=== PATIENT | female | born 1940 | race African-American/Black ===

== ENCOUNTER → 2018-10-30 | Outpatient (CLI) | payer MEDICARE, OTHER ==
[~2018-10-30] MED LIST: IOVERSOL 320 MG/ML 100 ML VIAL ONE; SODIUM CHLORIDE 0.9% 100 ML ONE
== END | disposition home or self-care (01) ==
LOC: RADMN 09:37
PROVIDERS: ATTEND Legal Medicine
DX: Z53.9 Procedure and treatment not carried out, unspecified reason (principal)
CPT/HCPCS: 70491; J7050; Q9967

== ENCOUNTER → 2022-10-10 | Outpatient (CLI) | payer MEDICARE, OTHER ==
[~2022-10-10] VITALS: Ht 154.9 cm; Wt 59.6 kg
[~2022-10-10] MED LIST changes: +CARB1DRO9 OU; +FLUT16SP NASAL; +FLUT1BLS3 PO; +IBUP-2853 PO; +INSLAN SQ; -IOVERSOL 320 MG/ML 100 ML VIAL ONE; +PROP1DRO4 OU; +SERT-158 PO; +SIMV-261 PO; -SODIUM CHLORIDE 0.9% 100 ML ONE; +UREA85CR TP; +XALA2.5OS OU
[2022-10-10 12:08] VITALS: BP 144/70
== END | disposition home or self-care (01) ==
LOC: SRCNTR 11:31
PROVIDERS: ATTEND Internal Medicine
DX: R22.1 Localized swelling, mass and lump, neck (principal); R06.00 Dyspnea, unspecified; D86.9 Sarcoidosis, unspecified; Z93.3 Colostomy status
CPT/HCPCS: G0463

== ENCOUNTER → 2023-11-07 | Outpatient (CLI) | payer MEDICARE ==
[~2023-11-07] MED LIST changes: +CARB1DRO24 OU; -CARB1DRO9 OU
== END | disposition home or self-care (01) ==
LOC: RADMN 08:27
PROVIDERS: ATTEND Legal Medicine
DX: F01.50 Vascular dementia, unspecified severity, without behavioral disturbance, psychotic disturbance, mood disturbance, and anxiety (principal); J32.8 Other chronic sinusitis
CPT/HCPCS: 70551

== ENCOUNTER 2024-10-28 19:45 | Inpatient (IN) | payer MEDICARE, OTHER, MEDICAID ==
[~2024-10-28] VITALS: Ht 154.9 cm; Wt 45.8 kg
[~2024-10-28 19:45] MED LIST changes: -CARB1DRO24 OU; +CARB50DR OU
[2024-10-28] MEDS ORDERED: 0.9% SODIUM CHLORIDE 10 ML SYRINGE IVP PRN (23:15)
[2024-10-28 23:29] LABS: BASOPHILS % (AUTO) 0.6 % (0.0-2.0); EOSINOPHILS % (AUTO) 0.1 % (1.0-6.0); HEMATOCRIT 38.4 % (36-46); HEMOGLOBIN 12.6 g/dL (12.0-16.0); LYMPHOCYTES # (AUTO) 1.4 K/uL (1.0-4.8); LYMPHOCYTES % (AUTO) 16.9 % (22.0-44.0); MEAN CORPUSCULAR HGB CONC 32.9 G/dL (31.0-37.0); MEAN CORPUSCULAR VOLUME 88 fL (80-100); MONOCYTES # (AUTO) 0.3 K/uL (0.1-1.0); MONOCYTES % (AUTO) 4.2 % (2.0-9.0); NEUTROPHILS # (AUTO) 6.3 K/uL (1.8-7.7); NEUTROPHILS % (AUTO) 78.2 % (40.0-70.0); PLATELET COUNT (AUTO) 162 K/uL (150-450); RED BLOOD CELL COUNT(AUTO) 4.36 MIL/uL (4.00-5.20); RED CELL DISTRIBUTION WIDTH 15.1 % (11.5-14.5)
[2024-10-28 23:38] LABS: ANION GAP 13 mmol/L (8-16); CALCIUM, TOTAL 9.6 mg/dL (8.8-10.5); CARBON DIOXIDE 15 mmol/L (22-29); CHLORIDE 109 mmol/L (98-107); CREATININE 2.06 mg/dL (0.60-1.30); GLOMERULAR FILTR. RATE CALC 28 mL/min (>60); GLUCOSE,RANDOM 128 mg/dL (70-110); POTASSIUM 5.9 mmol/L (3.5-5.1); PROTHROMBIN TIME 10.9 SEC (9.4-11.6); SODIUM SERUM 137 mmol/L (136-145); UREA NITROGEN, BLOOD 65 mg/dL (7-18)
[2024-10-28 23:44] LABS: B-TYPE NATRIURETIC PEPTIDE 25 pg/mL (0-100)
[2024-10-28 23:47] LABS: LACTIC ACID 1.6 mmol/L (0.4-2.0)
[2024-10-28 23:49] LABS: TROPONIN I-HIGH SENSITIVITY 59 ng/L (<51)
[2024-10-29] MEDS ORDERED: DEXTROSE 50%-WATER 25 GM/50 ML SYRINGE IVP PRN (01:00)
[2024-10-29] MEDS ORDERED: BISACODYL 10 MG RECTAL RECTAL SUPPOSITORY PR PRN (01:00)
[2024-10-29] MEDS ORDERED: ACETAMINOPHEN 325 MG TABLET PO PRN (01:00)
[2024-10-29] MEDS ORDERED: ONDANSETRON HCL 4 MG/2 ML VIAL IVP PRN (01:00)
[2024-10-29] MEDS: SODIUM ZIRCONIUM CYCLOSILICATE 5 GM POWDER PACKET PO ONE (01:13)
[2024-10-29] MEDS: SODIUM CHLORIDE 0.9% 900 ML IV ONE (01:13)
[2024-10-29] MEDS: CefTRIAXone 1 GM/DEXTROSE 50 ML IV ONE (01:14)
[2024-10-29] MEDS: SODIUM CHLORIDE 0.9% 1,000 ML IV ONE (01:15)
[2024-10-29 04:13] VITALS: BP 128/52; PULSE 75; RESP 16; TEMP 97.7; O2SAT 98
[2024-10-29 06:11] LABS: GLUCOMETER DEV NAME(LOC) 5N.2C; GLUCOSE,POINT OF CARE 107 MG/DL (70-110)
[2024-10-29] MEDS: DOCUSATE SODIUM 100 MG CAPSULE PO SCH (08:07)
[2024-10-29] MEDS: FAMOTIDINE 20 MG TABLET PO SCH (08:07)
[2024-10-29] MEDS: HEPARIN SODIUM,PORCINE 5,000 UNITS/ML VIAL SQ SCH (08:09)
[2024-10-29 09:01] VITALS: BP 122/55; PULSE 77; RESP 15; TEMP 98; O2SAT 97
[2024-10-29 09:55] LABS: CALCIUM, TOTAL 9.1 mg/dL (8.8-10.5); CREATININE 1.88 mg/dL (0.60-1.30); POTASSIUM 5.5 mmol/L (3.5-5.1)
[2024-10-29] MEDS: INSULIN LISPRO 100 UNITS/ML SQ PRN (12:07)
[2024-10-29 12:21] LABS: GLUCOMETER DEV NAME(LOC) 5N.1D; GLUCOSE,POINT OF CARE 183 MG/DL (70-110)
[2024-10-29 16:00] VITALS: BP 116/51; PULSE 68; RESP 16; TEMP 97.8; O2SAT 97
[2024-10-29] MEDS: [UNRECOGNIZED DRUG - REMARK] IV SCH (17:26)
[2024-10-29 19:47] VITALS: BP 130/54; PULSE 70; RESP 16; TEMP 97.9; O2SAT 100
[2024-10-30] VITALS (7 sets, daily range): BP systolic 112–140; BP diastolic 51–83; PULSE 67–86; RESP 16–19; TEMP 97.7–98.2; O2SAT 97–100
[2024-10-30 07:47] LABS: CALCIUM, TOTAL 8.3 mg/dL (8.8-10.5); CREATININE 1.39 mg/dL (0.60-1.30); MAGNESIUM 1.7 mg/dL (1.80-2.40); PHOSPHORUS 3.2 mg/dL (2.5-4.9); POTASSIUM 4.2 mmol/L (3.5-5.1)
[2024-10-30 09:51] LABS: GLUCOMETER DEV NAME(LOC) 5N.1D; GLUCOSE,POINT OF CARE 87 MG/DL (70-110)
[2024-10-30 09:51] LABS: GLUCOMETER DEV NAME(LOC) 5N.1D; GLUCOSE,POINT OF CARE 94 MG/DL (70-110)
[2024-10-30 09:51] LABS: GLUCOMETER DEV NAME(LOC) 5N.2C; GLUCOSE,POINT OF CARE 146 MG/DL (70-110)
[2024-10-30] MEDS: MAGNESIUM OXIDE 400 MG TABLET PO ONE (13:01)
[2024-10-30] MEDS: MAGNESIUM SULFATE 1 GM in DEXTROSE 5%-WATER 50 ML IV ONE (18:32)
[2024-10-30] MEDS: [UNRECOGNIZED DRUG - REMARK] IV SCH (20:08)
[2024-10-30 23:06] LABS: GLUCOMETER DEV NAME(LOC) 5N.2C; GLUCOSE,POINT OF CARE 156 MG/DL (70-110)
[2024-10-31 03:21] VITALS: BP 133/62; PULSE 91; RESP 18; TEMP 97.7; O2SAT 99
[2024-10-31 06:06] LABS: PARATHYROID HORMONE INTACT 27 pg/mL (15-65)
[2024-10-31 06:18] LABS: BASOPHILS % (AUTO) 0.4 % (0.0-2.0); EOSINOPHILS % (AUTO) 2.2 % (1.0-6.0); HEMATOCRIT 30.3 % (36-46); HEMOGLOBIN 10.3 g/dL (12.0-16.0); LYMPHOCYTES # (AUTO) 1.6 K/uL (1.0-4.8); LYMPHOCYTES % (AUTO) 29.6 % (22.0-44.0); MEAN CORPUSCULAR HEMOGLOBIN 29.1 pg (26.0-34.0); MEAN CORPUSCULAR HGB CONC 34.1 G/dL (31.0-37.0); MEAN CORPUSCULAR VOLUME 85 fL (80-100); MONOCYTES # (AUTO) 0.5 K/uL (0.1-1.0); MONOCYTES % (AUTO) 9.2 % (2.0-9.0); NEUTROPHILS # (AUTO) 3.1 K/uL (1.8-7.7); NEUTROPHILS % (AUTO) 58.6 % (40.0-70.0); PLATELET COUNT (AUTO) 131 K/uL (150-450); RED BLOOD CELL COUNT(AUTO) 3.55 MIL/uL (4.00-5.20); RED CELL DISTRIBUTION WIDTH 15.1 % (11.5-14.5); WHITE BLOOD COUNT (AUTO) 5.3 K/uL (4.5-11.0)
[2024-10-31 06:31] LABS: CALCIUM, TOTAL 8.4 mg/dL (8.8-10.5); CREATININE 1.16 mg/dL (0.60-1.30); POTASSIUM 4.5 mmol/L (3.5-5.1)
[2024-10-31 06:36] LABS: GLUCOMETER DEV NAME(LOC) 5N.2C; GLUCOSE,POINT OF CARE 114 MG/DL (70-110)
[2024-10-31 07:23] LABS: MAGNESIUM 2.5 mg/dL (1.80-2.40)
[2024-10-31 08:10] VITALS: BP 134/56; PULSE 92; RESP 20; TEMP 98.2; O2SAT 99
[2024-10-31 12:14] VITALS: BP 138/60; PULSE 70; RESP 19; TEMP 98.1; O2SAT 97
[2024-10-31 16:20] VITALS: BP 127/60; PULSE 74; RESP 18; TEMP 98.4; O2SAT 99
[2024-10-31 17:00] LABS: APPEARANCE,URINE CLEAR (CLEAR); BILIRUBIN,URINE NEGATIVE (NEGATIVE); COLOR,URINE LIGHT YELLOW (YELLOW); GLUCOSE, URINE (UA) NEGATIVE (NEGATIVE); KETONES,URINE NEGATIVE (NEGATIVE); LEUKOCYTE ESTERASE ,URINE NEGATIVE (NEGATIVE); NITRATE,URINE NEGATIVE (NEGATIVE); OCCULT BLOOD,URINE NEGATIVE (NEGATIVE); PROTEIN,URINE NEGATIVE (NEGATIVE); SPECIFIC GRAVITIY, URINE 1.009 (1.003-1.030); UROBILINOGEN,URINE <=1.0 mg/dL (<=1.0)
[2024-10-31 21:41] LABS: GLUCOMETER DEV NAME(LOC) 5N.2C; GLUCOSE,POINT OF CARE 167 MG/DL (70-110)
[2024-10-31 21:41] LABS: GLUCOMETER DEV NAME(LOC) 5N.2C; GLUCOSE,POINT OF CARE 153 MG/DL (70-110)
== END 2024-10-31 19:25 | disposition home or self-care (01) | DRG 682 ==
LOC: EMS 19:56 → EDH 10-29 01:13 → 5N 10-29 04:00
PROVIDERS: ADMIT Internal Medicine; ATTEND Internal Medicine
DX: N17.9 Acute kidney failure, unspecified (principal); G93.41 Metabolic encephalopathy; E87.20 Acidosis, unspecified; E46 Unspecified protein-calorie malnutrition; Z68.1 Body mass index [BMI] 19.9 or less, adult; C64.2 Malignant neoplasm of left kidney, except renal pelvis; F03.90 Unspecified dementia, unspecified severity, without behavioral disturbance, psychotic disturbance, mood disturbance, and anxiety; E87.5 Hyperkalemia; E11.22 Type 2 diabetes mellitus with diabetic chronic kidney disease; D64.9 Anemia, unspecified; N18.9 Chronic kidney disease, unspecified; J44.9 Chronic obstructive pulmonary disease, unspecified; E04.9 Nontoxic goiter, unspecified; I12.9 Hypertensive chronic kidney disease with stage 1 through stage 4 chronic kidney disease, or unspecified chronic kidney disease; Z93.3 Colostomy status; Q63.2 Ectopic kidney; Z81.8 Family history of other mental and behavioral disorders; Z82.49 Family history of ischemic heart disease and other diseases of the circulatory system; Z83.3 Family history of diabetes mellitus
CPT/HCPCS: 70450; 71045; 74176; 80048; 81003; 82607; 82962; 83605; 83735; 83880; 83970; 84100; 84145; 84484; 84630; 85025; 85610; 87040; 93005; 97116; 97163; 99285; J0696; J1644; J3475; J3490; J7030; J7060; 36415-L1; 36415-TC

== ENCOUNTER 2025-04-06 11:37 | Inpatient (IN) | payer MEDICARE, OTHER ==
[~2025-04-06] VITALS: Ht 154.9 cm; Wt 46.0 kg
[~2025-04-06 11:37] MED LIST changes: -CARB50DR OU; -FLUT16SP NASAL; +FLUT1BLS3 IH; -FLUT1BLS3 PO; -IBUP-2853 PO; -INSLAN SQ; -UREA85CR TP
[2025-04-06 12:38] LABS: PLATELET COUNT (AUTO) 164 K/uL (150-450); RED BLOOD CELL COUNT(AUTO) 3.99 MIL/uL (4.00-5.20); RED CELL DISTRIBUTION WIDTH 14.5 % (11.5-14.5); WHITE BLOOD COUNT (AUTO) 6.1 K/uL (4.5-11.0)
[2025-04-06 12:42] LABS: CALCIUM, TOTAL 9.1 mg/dL (8.8-10.5); CREATININE 1.46 mg/dL (0.60-1.30); GLOMERULAR FILTR. RATE CALC 41 mL/min (>60); GLUCOSE,RANDOM 138 mg/dL (70-110); SODIUM SERUM 138 mmol/L (136-145); UREA NITROGEN, BLOOD 30 mg/dL (7-18)
[2025-04-06 12:48] LABS: CREATINE KINASE, TOTAL ONLY 29 U/L (26-192)
[2025-04-06 12:50] LABS: TROPONIN I-HIGH SENSITIVITY 6 ng/L (<51)
[2025-04-06 13:17] LABS: APPEARANCE,URINE CLEAR (CLEAR); GLUCOSE, URINE (UA) NEGATIVE (NEGATIVE); LEUKOCYTE ESTERASE ,URINE NEGATIVE (NEGATIVE); NITRATE,URINE NEGATIVE (NEGATIVE); OCCULT BLOOD,URINE NEGATIVE (NEGATIVE); SPECIFIC GRAVITIY, URINE 1.010 (1.003-1.030)
[2025-04-06] MEDS: SODIUM CHLORIDE 0.9% 500 ML IV ONE (13:55)
[2025-04-06 16:58] VITALS: BP 150/96; PULSE 54; RESP 18; TEMP 98.1; O2SAT 92
[2025-04-06] MEDS ORDERED: HYDROCODONE/ACETAMINOPHEN 5-325 MG TABLET PO PRN (19:30)
[2025-04-06] MEDS ORDERED: BISACODYL 10 MG RECTAL RECTAL SUPPOSITORY PR PRN (19:30)
[2025-04-06] MEDS ORDERED: ZOLPIDEM TARTRATE 5 MG TABLET PO PRN (19:30)
[2025-04-06] MEDS ORDERED: DEXTROSE 50%-WATER 25 GM/50 ML SYRINGE IVP PRN (19:30)
[2025-04-06] MEDS ORDERED: MORPHINE SULFATE 4 MG/ML SYRINGE IVP PRN (19:30)
[2025-04-06] MEDS ORDERED: INSULIN LISPRO 100 UNITS/ML SQ PRN ×2 (19:30)
[2025-04-06] MEDS ORDERED: MAGNESIUM HYDROXIDE SUSPENSION 30 ML UDCUP PO PRN (19:30)
[2025-04-06] MEDS ORDERED: IPRATROPIUM BROMIDE 0.5 MG/2.5 ML NEB SOLUTION NEB PRN (19:30)
[2025-04-06] MEDS ORDERED: ONDANSETRON HCL 4 MG/2 ML VIAL IVP PRN (19:30)
[2025-04-06] MEDS ORDERED: GLUCAGON,HUMAN RECOMBINANT 1 MG VIAL IM PRN (19:30)
[2025-04-06] MEDS ORDERED: ACETAMINOPHEN 325 MG TABLET PO PRN (19:30)
[2025-04-06] MEDS ORDERED: ALBUTEROL SULFATE 2.5 MG/0.5 ML NEB SOLUTION NEB PRN (19:30)
[2025-04-06 19:33] VITALS: BP 168/52; PULSE 61; RESP 18; TEMP 97.9; O2SAT 97
[2025-04-06 19:34] VITALS: BP 174/66; RESP 18; O2SAT 95
[2025-04-06] MEDS: LABETALOL HCL 5 MG/ML 20 ML VIAL IVP PRN (20:00)
[2025-04-06] MEDS: CARBIDOPA/LEVODOPA 25-100 MG TABLET PO SCH (20:21)
[2025-04-06 22:10] VITALS: BP 140/55; PULSE 58; RESP 18; TEMP 98.1; O2SAT 98
[2025-04-06] MEDS: HEPARIN SODIUM,PORCINE 5,000 UNITS/ML VIAL SQ SCH (23:21)
[2025-04-07 05:05] VITALS: BP 145/54; PULSE 68; RESP 18; TEMP 98.1; O2SAT 99
[2025-04-07 06:26] LABS: GLUCOMETER DEV NAME(LOC) 6N.1C; GLUCOSE,POINT OF CARE 101 MG/DL (70-110)
[2025-04-07 08:51] VITALS: BP 149/59; PULSE 60; RESP 18; TEMP 97.5; O2SAT 98
[2025-04-07] MEDS: SODIUM CHLORIDE 0.9% 1,000 ML IV ONE (08:52)
[2025-04-07] MEDS: PANTOPRAZOLE SODIUM 40 MG DR TABLET PO SCH (08:52)
[2025-04-07 15:41] VITALS: BP 144/64; PULSE 60; RESP 18; TEMP 97.7; O2SAT 98
[2025-04-07 17:40] LABS: GLUCOMETER DEV NAME(LOC) 6N.2C; GLUCOSE,POINT OF CARE 131 MG/DL (70-110)
[2025-04-07 17:40] LABS: GLUCOMETER DEV NAME(LOC) 6N.2C; GLUCOSE,POINT OF CARE 106 MG/DL (70-110)
[2025-04-07 20:09] VITALS: BP 151/54; PULSE 60; RESP 20; TEMP 97.7; O2SAT 97
[2025-04-07 21:05] LABS: GLUCOMETER DEV NAME(LOC) 6N.1C; GLUCOSE,POINT OF CARE 119 MG/DL (70-110)
[2025-04-08 04:31] VITALS: BP 145/75; PULSE 55; RESP 18; TEMP 97.9; O2SAT 98
[2025-04-08 06:30] LABS: GLUCOMETER DEV NAME(LOC) 6N.2C; GLUCOSE,POINT OF CARE 117 MG/DL (70-110)
[2025-04-08 08:12] VITALS: BP 160/66; PULSE 59; RESP 18; TEMP 97.5; O2SAT 100
[2025-04-08 09:05] VITALS: BP 140/60; PULSE 59; RESP 18; TEMP 97; O2SAT 97
[2025-04-08 09:31] LABS: GLUCOMETER DEV NAME(LOC) 6N.2C; GLUCOSE,POINT OF CARE 92 MG/DL (70-110)
[2025-04-08 13:57] LABS: GLUCOSE,RANDOM 115 mg/dL (70-110); SODIUM SERUM 139 mmol/L (136-145)
[2025-04-08 13:58] LABS: CALCIUM, TOTAL 8.8 mg/dL (8.8-10.5); CREATININE 0.97 mg/dL (0.60-1.30); GLOMERULAR FILTR. RATE CALC > 60 mL/min (>60); UREA NITROGEN, BLOOD 17 mg/dL (7-18)
[2025-04-08 17:41] LABS: GLUCOMETER DEV NAME(LOC) 6N.1C; GLUCOSE,POINT OF CARE 82 MG/DL (70-110)
[2025-04-08 17:41] LABS: GLUCOMETER DEV NAME(LOC) 6N.1C; GLUCOSE,POINT OF CARE 115 MG/DL (70-110)
== END 2025-04-08 14:40 | disposition home or self-care (01) | DRG 641 ==
LOC: EDBD 11:42 → EMS 11:42 → EDH 14:06 → 4E 16:30
PROVIDERS: ADMIT Hospitalist; ATTEND Hospitalist
DX: E86.0 Dehydration (principal); N17.9 Acute kidney failure, unspecified; R10.30 Lower abdominal pain, unspecified; D35.02 Benign neoplasm of left adrenal gland; F02.80 Dementia in other diseases classified elsewhere, unspecified severity, without behavioral disturbance, psychotic disturbance, mood disturbance, and anxiety; G20.A1 Parkinson's disease without dyskinesia, without mention of fluctuations; E11.9 Type 2 diabetes mellitus without complications; D64.9 Anemia, unspecified; G30.9 Alzheimer's disease, unspecified; D86.9 Sarcoidosis, unspecified; I10 Essential (primary) hypertension; N28.1 Cyst of kidney, acquired; Z90.49 Acquired absence of other specified parts of digestive tract; Z79.899 Other long term (current) drug therapy; Z93.3 Colostomy status
CPT/HCPCS: 71045; 74176; 80048; 81003; 82550; 82962; 83880; 84484; 85025; 85610; 85730; 93005; 96360; 96361; 97116; 97530; 99285; G0378; J1644; J3490; J7030; J7040; 36415-L1; 36415-TC